=== PATIENT | female | born 1975 | race Caucasian/White ===

== ENCOUNTER → 2021-05-26 | Outpatient (CLI) | payer OTHER, SELFPAY ==
--- NOTE | 2021-05-26 | CYSPIN_PTH ---
PATIENT: AIDEN GENTILE LOC: [facility] U#:[id number] AGE/SX: 46/F ROOM: RE05/26/[address]: Dr. Roxanne Cooley MD : 1975 BED: DIS: 05/26/2021 SPEC #: [id number] RECD: 05/27/21 07:51 STATUS: CLYDE SILVA #: [id number] DANNIE: 05/26/21 00:[address]: Roxanne Cooley DEPT: CYTOLOGY RECD BY: Shyann Malcolm Tissues: Urine Procedures: Pap Stain (control) Special Stain Group II Cytospin Fluid HEADER OPERATION: Not noted PRE-OP DIAGNOSIS: Gross hematuria TISSUE SUBMITTED: Urine for cytology DIAGNOSIS CYTOLOGY Urine for cytology (cytospin): Negative for malignant cells. See comment. AM:ramakrishna 05/27/2021 COMMENT The specimen primarily contains squamous epithelial cells. Clinical correlation is suggested. CYTOLOGY STUDY Slides are reviewed. CYTOLOGY GROSS Received is 25 ml of cloudy yellow fluid labeled with the patient's name and and designated per the requisition as urine. Submitted for cytology preparation. / ramakrishna 05/27/21 TC:5 CPT: 41753
[2021-05-26 12:13] LABS: Cytology, Body Fluid / CSF SEE PATHOLOGY REPORT
== END | disposition home or self-care (01) ==
PROVIDERS: Visit Provider Urology
DX: R31.0 Gross hematuria (principal)
CPT/HCPCS: 88108; 88313